=== PATIENT | male | born 1995 | race African-American/Black ===

== ENCOUNTER 2023-04-17 10:50 | Emergency (ER) | payer MEDICAID, SELFPAY ==
[2023-04-17 11:07] VITALS: BP 120/72; PULSE 95; RESP 16; TEMP 36.1; O2SAT 95; BMI 40.3
--- NOTE | 2023-04-17 11:08 | ED.BACK ---
HPI - Back Pain/Injury General Chief Complaint: Back Pain/Injury Stated Complaint: lower back pain Time Seen by Provider: 04/17/23 11:08 Source: patient Mode of arrival: ambulatory Limitations: no limitations History of Present Illness HPI Narrative: 27 yo male with no known medical history here with complaints of lower back pain which occurred while lifting a large box while working. Patient reports he had had some lower back pain intermittent prior to this injury but today the lifting caused him to have further pain. There is no radiation of pain. There is no associated weakness, numbness or tingling in the extremities. There is no reports of numbness in the groin. No reports of bowel or bladder incontinence. No fevers or chills. Patient is ambulatory. Related Data Previous Rx's Medication Instructions Recorded cyclobenzaprine 10 mg tablet 10 mg PO TID PRN muscle spasm #15 04/17/23 tabs ibuprofen 600 mg tablet 600 mg PO Q6H PRN pain #30 tabs 04/17/23 Allergies Allergy/AdvReac Type Severity Reaction Status Date / Time No Known Allergies Allergy Verified 04/17/23 11:06 Review of Systems Review of Systems: Yes all other systems are reviewed and are negative Constitutional: Constitutional: Reports no additional constitutional complaints, Denies body ache(s), Denies chills, Denies fever(s), Denies headache(s) and Denies weakness Eyes: Eyes: Reports no additional eye complaints and Denies change in vision ENT: Reports system reviewed and no additional complaints, except as documented, Denies dizziness, Denies headache(s), Denies nasal congestion, Denies nasal discharge and Denies neck pain Cardiovascular: Cardiovascular: Reports no additional cardiovascular complaints, Denies chest pain, Denies leg edema and Denies dyspnea Respiratory: Respiratory: Reports no additional respiratory complaints, Denies cough and Denies dyspnea Gastrointestinal: Gastrointestinal: Reports no additional gastrointestinal complaints, Denies abdominal pain, Denies diarrhea, Denies nausea and Denies vomiting Genitourinary: Genitourinary: Denies urinary incontinence Musculoskeletal: Musculoskeletal: Reports no additional musculoskeletal complaints, Reports back pain, Denies arthralgias, Denies joint swelling, Denies neck pain, Denies numbness and Denies tingling Integumentary/Breasts: Skin/Breast: Reports system reviewed and no additional complaints, except as docu and Denies rash Neurologic: Reports system reviewed and no additional complaints, except as documented, Denies Abnormal speech present, Denies dizziness, Denies headache(s), Denies numbness, Denies tingling and Denies weakness PMFSH Past Medical History Attestation statement: The following information was validated with the patient. Source: old records reviewed and nursing notes reviewed Social History Social History Advance Directives: No Advance Directives Information Provided: Yes Physical Exam Vital Signs: Vital Signs: Last Vital Signs Temp 97 F 04/17/23 11:07 Pulse 95 04/17/23 11:07 Resp 16 04/17/23 11:07 BP 120/72 04/17/23 11:07 Pulse Ox 95 04/17/23 11:07 O2 Del Method Room Air 04/17/23 11:07 BMI result Body Mass Index 40.3 Const: General: cooperative, healthy appearing, comfortable and no acute distress Orientation/consciousness: patient oriented x3 Limitations: no limitations HEENT: Head: Yes normal to inspection Ears: hearing grossly normal bilaterally General nose exam: Normal external nose present Face and sinus: Yes normal facial exam Mouth: Normal oral and palatal mucosa present Throat: Yes posterior oropharynx normal Eyes: General: appearance normal, both eyes and all related structures Pupils: Equal, round and reactive pupils present Neck: Neck: Yes normal visual inspection Chest: Chest palpation & inspection: normal inspection of the chest Resp: Effort & Inspection: normal respiratory effort Auscultation: clear to auscultation bilaterally Cardio: Rate: regular rate Rhythm: regular rhythm Peripheral pulses: Peripheral pulses 2+ throughout GI: Inspection: Yes normal to inspection Palpation (GI): Soft to palpation and nontender Auscultation: normal bowel sounds Back/Spine/Pelvis: Other: There is tenderness on palpation over the lumbar mid spine with no step-offs deformities. Thoracic/Lumbar Spine: thoracic and lumbar spine normal to inspection Skin: General skin exam: no rashes or lesions noted Neuro: General: patient oriented x3, no focal motor deficits and normal sensation to monofilament Cranial nerves: Yes Equal, round and reactive pupils present Cognition (Neuro): normal cognition Speech: No Abnormal speech present Gait exam (Neuro): Normal gait present Motor exam (neuro): 5/5 motor strength present throughout Sensory Exam: Normal double simultaneous stimulation for sensation Deep tendon reflexes (DTR's): Right patellar reflex intensity grade: 2+ and Left patellar reflex intensity grade: 2+ Extrem: General: Yes normal to inspection Medical Decision Making Medical Decision Making MDM Narrative: 27-year-old male here with lower back pain after lifting injury while working. No neurological deficits or red flag symptoms Patient was some mild tenderness over the lumbar spine with no step-offs or deformities. Likely lumbar strain, considered disc herniation Patient will be treated with NSAIDs, muscle relaxants and recommendations to follow-up with occupational health outpatient. Reviewed worrisome signs and symptoms of when to return to the emergency room. Comfortable plan for discharge home. Differential Diagnosis Differential Diagnoses: The differential diagnosis associated with the presentation includes Likely lumbar strain, disc herniation Low concern for epidural abscess, cord compression, cauda equina, fracture Tests considered The following testing was considered but not selected: No need for x-rays as there was no concern for fall or trauma No need for emergent MRI with normal neurological exam and no red flag symptoms Prescription Management I considered prescription management with: Pain Medication Will be discharged home with NSAID and muscle relaxer Discharge Plan Discharge Clinical Impression: Lumbar strain Patient Disposition: Home, Self-Care Instructions: Low Back Strain (ED), Lower Back Exercises (ED) Additional Instructions: Heat or ice gentle stretching NO heavy lifting or bending follow-up with occupational health [id number] return for incontinence of urine/stool, fever, numbness in the groin Prescriptions: New cyclobenzaprine 10 mg tablet 10 mg PO TID PRN (Reason: muscle spasm) Qty: 15 0RF ibuprofen 600 mg tablet 600 mg PO Q6H PRN (Reason: pain) Qty: 30 0RF Referrals: Physician,Unknown J [Primary Care Provider] - Stand Alone Forms: Work/School Release Interventions: ED Discharge Assessment Last Done: 04/17/23 11:16 Discharge Date/Time: 04/17/23 11:26
== END 2023-04-17 11:26 | disposition home or self-care (01) ==
LOC: HO.ED 11:24
PROVIDERS: Emergency Provider Emergency Medicine
DX: M54.50 Low back pain, unspecified (principal)
CPT/HCPCS: 99282; 99283